=== PATIENT | female | born 1990 | race Caucasian/White ===

== ENCOUNTER 2021-06-23 02:04 | Emergency (ER) | payer BC, OTHER, SELFPAY ==
[2021-06-23] MEDS ORDERED: Morphine 4 MG/ML VIAL ONE (02:24)
[2021-06-23] MEDS ORDERED: Ondansetron PF 4 MG/2 ML Vial ONE (02:24)
[2021-06-23] MEDS ORDERED: Ketamine 50 MG/ML (10ML VIAL) ONE (04:04)
[2021-06-23] MEDS ORDERED: HYDROcodone/Acetaminophen 5/325 mg Tablet ONE (05:41)
== END 2021-06-23 05:50 | disposition home or self-care (01) ==
LOC: CSHERS 02:04
DX: S52.501A Unspecified fracture of the lower end of right radius, initial encounter for closed fracture (principal); S52.601A Unspecified fracture of lower end of right ulna, initial encounter for closed fracture; S61.411A Laceration without foreign body of right hand, initial encounter; V89.2XXA Person injured in unspecified motor-vehicle accident, traffic, initial encounter
CPT/HCPCS: 12002; 25565; 96374; 96375; 99152; G0390; J2270; J2405

== ENCOUNTER 2024-06-21 03:37 | Emergency (ER) | payer BC, SELFPAY ==
[2024-06-21 04:50] LABS: Influenza A by NAA Not Detected (NotDetected); Influenza B by NAA Not Detected (NotDetected); SARS-CoV-2 NAA Rapid Test DETECTED (NotDetected)
[2024-06-21 04:50] LABS: Hematocrit 27.8 % (34.9-44.5); Hemoglobin 9.5 g/dL (12.0-15.5); Mean Corpuscular HGB CONC 34.2 g/dL (32.0-36.0); Mean Corpuscular Hemoglobin 32.2 pg (27.0-33.0); Mean Corpuscular Volume 94.2 fL (81.6-98.3); Mean Platelet Volume 10.2 fL (7.4-10.4); Platelet Count 194 10x3/uL (150-450); RBC Distribution Width 16.4 % (11.5-14.5); Red Blood Cell (RBC) Count 2.95 10x6/uL (3.90-5.03); White Blood Cell (WBC) Count 5.6 10x3/uL (3.5-10.5)
[2024-06-21 04:51] LABS: MDiff Complete? YES
[2024-06-21 04:56] LABS: Anion Gap 14 mmol/L (10-20); BUN (Urea Nitrogen) 14 mg/dL (7.0-18.7); Calc. Creatinine Clearance 0 mL/min (70-130); Calcium 9.1 mg/dL (7.8-10.44); Carbon Dioxide 25 mmol/L (22-29); Chloride 104 mmol/L (98-107); Estimated GFR 96; Glucose 87 mg/dL (70-105); Potassium 3.2 mmol/L (3.5-5.1); Sodium 140 mmol/L (136-145)
[2024-06-21 05:19] LABS: Band 22 % (5-11); Lymphocytes 15 % (21-51); Metamyelocyte 1 % (0-0); Monocytes 1 % (0-10); Neutrophil 61 % (42-75)
[2024-06-21 05:21] LABS: Anisocytosis SLIGHT = 6-15 cells (100X) (0-5/hpf); Platelet Adequacy Comment Appears Adequate
== END 2024-06-21 05:55 | disposition home or self-care (01) ==
LOC: CSHERS 03:37
DX: U07.1 COVID-19 (principal)
CPT/HCPCS: 80048; 83605; 85025; 87081; 87430; 99283